=== PATIENT | male | born 1970 | race Caucasian/White ===

== ENCOUNTER 2016-12-31 16:22 | Emergency (ER) | payer SELFPAY ==
[~2016-12-31] VITALS: Wt 110.0 kg
[~2016-12-31 16:22] MED LIST: HYDR-762 PO; IBUP800T25 PO; ONDA4TAB35 PO
== END 2016-12-31 23:39 | disposition left against medical advice (07) ==
LOC: E/R 16:22
DX: Z53.21 Procedure and treatment not carried out due to patient leaving prior to being seen by health care provider (principal)

== ENCOUNTER 2018-06-12 13:09 | Emergency (ER) | END 2018-06-12 17:22 | disposition home or self-care (01) ==

== ENCOUNTER 2018-07-30 15:51 | Emergency (ER) | END 2018-07-30 18:45 | disposition home or self-care (01) ==

== ENCOUNTER 2019-08-02 21:49 | Emergency (ER) | payer OTHER ==
[~2019-08-02] VITALS: Ht 177.8 cm; Wt 102.6 kg
[~2019-08-02 21:49] MED LIST changes: +BEN25 PO; +CLOT30CR24 TOP; +HC.5O30 TOP; -HYDR-762 PO; -IBUP800T25 PO; +INSU100I33 SC; +METR500T PO; -ONDA4TAB35 PO; +SITA1TAB PO
[2019-08-02 21:55] VITALS: Ht 177.8 cm; Wt 102.6 kg
[2019-08-02 23:34] VITALS: BP 124/78; PULSE 83; RESP 16
== END 2019-08-02 23:34 | disposition home or self-care (01) ==
LOC: FTE 21:49
DX: R21 Rash and other nonspecific skin eruption (principal); E11.9 Type 2 diabetes mellitus without complications; N48.1 Balanitis; Z79.84 Long term (current) use of oral hypoglycemic drugs
CPT/HCPCS: 99283